=== PATIENT | male | born 1990 | race Caucasian/White ===

== ENCOUNTER 2020-01-17 18:54 | Emergency (ER) | payer BC, SELFPAY ==
[2020-01-17 18:55] VITALS: BP 145/83; PULSE 66; RESP 14; TEMP 36.2; O2SAT 100; BMI 23.9
--- NOTE | 2020-01-17 19:05 | ED.VIS.UPPEX ---
History of Present Illness Chief Complaint: Laceration Informant: Patient Occurred: Today - JPTA Mechanism/Context: Incised - Accidentally with a new, clean knife as he was trying to pry apart 2 pieces of wood Context: Sudden Onset Timing: Continuous Quality of Pain: - - Sore Location: Left hand Current Severity: Mild Maximum Severity: Moderate Worsened by: Palpation Relieved by: Leaving alone Associated Symptoms: Negative for: Parasthesia, Weakness, Loss of Funtion Tetanus Immunization: 5-10 years Past Medical History - Allergies and Home Meds Allergies/Adverse Reactions: Allergies No Known Allergies Allergy (Verified 01/17/20 18:54) Past Medical History: None Drugs: None Review of Systems General: Denies: Chills, Fever, Sweats Musculoskeletal: Reports: Extremity Pain Skin: Reports: Wounds. Denies: Rash Neurological: Denies: Headache, Weakness, Parasthesia, Numbness Physical Exam Vital Signs/Narrative: Vital Signs Temp Pulse Resp BP Pulse Ox 01/17/20 18:55 97.1 F L 66 14 145/8 H 100 General: Well nourished, Well developed, - - NAD Head: Normocephalic, Atraumatic Extremeties: Tender at the wound at the left hand along the first ray, full range of motion intact. No bony tenderness. Skin: Normal color, No rash, Trauma - V-shaped 4 cm full-thickness wound to the dorsum of the left hand, along the first ray between the thumb CMC and MCP joints. Subcutaneous tissue was seen, no tendon, vessels, foreign body, bone visible. Neurological: Alert, Oriented x3, Cranial nerves II-XII grossly intact, Normal Strength, Normal Sensation, Normal Gait Psychological: Normal affect, Normal Mood Diagnostic/Tx/Re-eval - Medical Decision Making After anesthetizing and temporarily pausing venous blood flow for a bloodless field, the wound was explored. It was not near the thenar eminence, and involves some of the muscle there which is why it is oozing blood quite a bit. There was good hemostasis with wound closure. There is no tendon visible or lacerated and he retained full range of motion of the thumb although somewhat limited due to the swelling in the thenar eminence. 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 Suture removal in 10-14 days. Patient wanted his tetanus updated so we were able to do that here. Procedures - Lacerations left hand Length: 4 cm Depth: Muscle Shape: V-shaped / curved Prep: Sterile Conditions, Chlorhexadine Laceration repair: Irrigated, Lidocaine - 1%, 3cc locally, Lidocaine with epi - topically, Skin sutures, Wound explored - no tendon, vessel, nerve, bone visible; nonpulsatile oozing of blood Irrigated (ml): 150 Number of Sutures/[place]: 7 Suture Information: Simple, Horizontal, 4-0 ED Disposition - Plan for ED Patient: Disposition: Home or Assisted Living Diagnosis: Laceration of left hand, Tetanus-diphtheria vaccination administered at current visit Instructions: ED Laceration Hand Referrals: Noel Joseph DO [Primary Care Provider] - 10-14 Days suture removal (Or ER or urgent care for wound reevaluation and suture removal)
[2020-01-17] MEDS: Lidocaine/Epi/Tetracaine 50 ML 1 APPLIC TOPICAL (19:16)
[2020-01-17] MEDS: Diphth,Pertuss(Acell),Tet Vac 0.5 ML Vial IM (20:06)
[2020-01-17 21:38] VITALS: RESP 16
== END 2020-01-17 21:39 | disposition home or self-care (01) ==
PROVIDERS: Emergency Provider Emergency Medicine; PCP Family Medicine
DX: S61.412A Laceration without foreign body of left hand, initial encounter (principal); Z23 Encounter for immunization; W26.0XXA Contact with knife, initial encounter; Y93.89 Activity, other specified; Y92.008 Other place in unspecified non-institutional (private) residence as the place of occurrence of the external cause; Y99.8 Other external cause status
CPT/HCPCS: 12002; 90471; 90715; 99284